=== PATIENT | male | born 1975 | race Caucasian/White ===

== ENCOUNTER 2024-02-16 20:09 | Emergency (ER) | payer MEDICARE, MEDICAID ==
[~2024-02-16] VITALS: Ht 167.6 cm; Wt 127.2 kg
[2024-02-16] MEDS ORDERED: SULF1TAB49 PO (21:10)
[2024-02-16] MEDS: sulfamethoxazole/trimethoprim DS (800/160mg) tablet PO ONE (21:26)
[2024-02-16] MEDS ORDERED: HYDR-3965 PO (21:33)
[2024-02-16 21:38] VITALS: BP 136/92; PULSE 80; RESP 16; TEMP 99.2; O2SAT 98
== END 2024-02-16 21:39 | disposition home or self-care (01) ==
LOC: ER 20:11
DX: R60.0 Localized edema (principal); L03.115 Cellulitis of right lower limb; Z88.8 Allergy status to other drugs, medicaments and biological substances
CPT/HCPCS: 99283